=== PATIENT | female | born 1945 | race Caucasian/White ===

== ENCOUNTER → 2016-10-16 | Outpatient (CLI) | payer MEDICARE, BC ==
[~2016-10-16] MED LIST: ASPI325T6 PO; CELEBREX 200MG200 MG PO; HCTZ 25MG TAB25 MG PO; IRON324 M1 PO; NORCO 325 MG-7.1 TAB PO; VITAMIN C500 MG PO; ZOCOR 20MG20 MG PO
== END ==
LOC: MC.RAD 10:33
DX: Z12.31 Encounter for screening mammogram for malignant neoplasm of breast (principal)